=== PATIENT | male | born 1990 ===

== ENCOUNTER → 2016-10-19 | Outpatient (CLI) | payer BC ==
--- NOTE | 2016-10-19 15:04 | Diagnostic Imaging Report ---
Indication: Chest pain Technique: 2 views of the chest Comparison: none. Findings: Lungs and pleural spaces are clear. Heart size is normal. Bones are unremarkable.. Impression: No acute process
== END | disposition home or self-care (01) ==
LOC: RAD 10:00
DX: R07.9 Chest pain, unspecified (principal)
CPT/HCPCS: 71020